=== PATIENT | female | born 1965 | race Caucasian/White ===

== ENCOUNTER → 2016-12-11 | Outpatient (CLI) | payer OTHER | LOC: BRMIMAGING 11:34 | DX: Z12.31 Encounter for screening mammogram for malignant neoplasm of breast (principal) | CPT/HCPCS: G0202 ==

== ENCOUNTER → 2017-02-27 | Outpatient (CLI) | payer OTHER | LOC: FIMAGING 18:59 | PROVIDERS: ATTEND Internal Medicine | DX: M54.5 Low back pain (principal); R19.09 Other intra-abdominal and pelvic swelling, mass and lump ==

== ENCOUNTER → 2017-03-04 | Outpatient (CLI) | payer OTHER | LOC: BRMIMAGING 14:04 | PROVIDERS: ATTEND Internal Medicine Hematology & Oncology | DX: R19.09 Other intra-abdominal and pelvic swelling, mass and lump (principal) | CPT/HCPCS: 76830-PO ==

== ENCOUNTER → 2017-07-01 | Outpatient (CLI) | payer OTHER | LOC: BRMIMAGING 08:33 | PROVIDERS: ATTEND Internal Medicine | DX: R19.00 Intra-abdominal and pelvic swelling, mass and lump, unspecified site (principal) | CPT/HCPCS: 76705-PO ==

== ENCOUNTER → 2017-07-17 | Outpatient (CLI) | payer OTHER | LOC: FIMAGING 19:51 | PROVIDERS: ATTEND Internal Medicine | DX: M51.37 Other intervertebral disc degeneration, lumbosacral region (principal); R22.2 Localized swelling, mass and lump, trunk ==

== ENCOUNTER → 2017-08-07 | Outpatient (CLI) | payer OTHER | LOC: FIMAGING 16:27 | PROVIDERS: ATTEND Surgery | DX: M79.81 Nontraumatic hematoma of soft tissue (principal) ==

== ENCOUNTER → 2018-12-17 | Outpatient (CLI) | payer OTHER | LOC: CLAB 12:23 | PROVIDERS: ATTEND Internal Medicine | DX: M16.11 Unilateral primary osteoarthritis, right hip (principal) | CPT/HCPCS: 73502-PO ==